=== PATIENT | male | born 1970 | race Caucasian/White ===

== ENCOUNTER 2019-12-26 21:06 | Inpatient (IN) ==
[2019-12-27] MEDS ORDERED: DOCUSATE SODIUM 100 MG CAPSULE PO PRN (00:09)
[2019-12-27] MEDS ORDERED: DEXTROSE 50% 25 GM/50 ML VIAL IV PRN (00:09)
[2019-12-27] MEDS ORDERED: GLUCAGON 1 MG VIAL IM PRN (00:09)
[2019-12-27] MEDS ORDERED: ONDANSETRON 4 MG/2 ML VIAL IV PRN (00:09)
[2019-12-27] MEDS ORDERED: NITROGLYCERIN SL 0.4 MG TABLET SL PRN (00:14)
[2019-12-27] MEDS ORDERED: LORazepam 2 MG/1 ML VIAL IV PRN (00:15)
[2019-12-27] MEDS ORDERED: MAGNESIUM SULF RIDER 2 GM in PREMIX 1 EACH IV PRN ×2 (00:20→08:47)
[2019-12-27] MEDS ORDERED: POTASSIUM CHLORIDE 20 MEQ TABLET PO ONE (00:20)
[2019-12-27] MEDS ORDERED: MAGNESIUM SULF RIDER 4 GM in PREMIX 1 EACH IV PRN (00:20)
[2019-12-27] MEDS: NICOTINE 21 MG/24 HR PATCH TRANSDERM PRN (00:41)
[2019-12-27] MEDS: LORazepam 2 MG/1 ML VIAL IV PRN (01:16)
[2019-12-27] MEDS: ACETAMINOPHEN 325 MG TABLET PO PRN ×2 (03:50→08:25)
[2019-12-27 06:26] LABS: Basophils % 0.3 % (0.0-0.8); Eosinophils # 0.2 10*3/uL (0.0-0.87); Eosinophils % 1.7 % (0.00-10.9); Hematocrit 44.1 VOL% (42.0-52.0); Hemoglobin 14.3 GM/DL (14.0-18.0); Immature Granulocytes % 0.3 %; Immature Granulocytes Absolute 0.03 #; Lymphocytes % 25.9 % (21.2-54.2); Mean Corpuscular HGB Conc 32.4 GM/DL (32-36); Mean Corpuscular Volume 94.4 FL (87-102); Mean Platelet Volume 10.2 FL (9.6-12.0); Monocytes % 4.8 % (1.7-12.7); Platelet Count 245 T/CUMM (130-400); Red Blood Count 4.67 MC/CUMM (3.8-5.5); Red Cell Distribution Width 14.6 % (9.3-17.3); White Blood Count 11.6 T/CUMM (4-12)
[2019-12-27 07:14] LABS: Albumin 3.4 G/DL (3.4-5.0); Bilirubin,Total 0.4 MG/DL (0.2-1.0); Calcium 8.7 MG/DL (8.5-10.1); Risk Ratio 5.76; Thyroid Stimulating Hormone 3.23 uIU/ml (0.358-3.74); Total Protein 7.9 G/DL (6.4-8.3); VLDL CHOLESTEROL 52.2 MG/DL
[2019-12-27] MEDS: INSULIN LISPRO 100 UNIT/ML SUBCUT SCH ×4 (08:20→22:18)
[2019-12-27] MEDS: hydrALAZINE 20 MG/1 ML VIAL IV PRN ×2 (08:22→15:58)
[2019-12-27] MEDS ORDERED: POTASSIUM CHLORIDE RIDER 10 MEQ in PREMIX 1 EACH IV PRN (08:47)
[2019-12-27] MEDS ORDERED: DIAZEPAM 5 MG TABLET PO ONE (08:47)
[2019-12-27] MEDS ORDERED: diphenhydrAMINE CAP 50 MG CAPSULE PO ONE (08:47)
[2019-12-27] MEDS ORDERED: ENOXAPARIN 120 MG/0.8 ML SYRINGE SUBCUT SCH (09:00)
[2019-12-27] MEDS: AMOXICILLIN 875 MG TABLET PO SCH ×2 (09:53→21:06)
[2019-12-27 10:11] LABS: Barbiturates Screen,Urine Negative (Negative); Benzodiazepines Screen,Urine Negative (Negative); Cannabinoid Screen,Urine Positive (Negative); Opiate Screen,Urine Negative (Negative); Phencyclidine Screen,Urine Negative (Negative)
[2019-12-27] MEDS: POTASSIUM CHLORIDE 20 MEQ TABLET PO PRN ×3 (10:13→17:05)
[2019-12-27] MEDS: ASPIRIN EC 81 MG TABLET PO SCH (10:13)
[2019-12-27] MEDS ORDERED: LIDOCAINE 1% 20 ML VIAL ONE (10:35)
[2019-12-27] MEDS ORDERED: HEPARIN/NACL 0.9% 2 UNITS/ML 1,500 ML IV ONE (10:35)
[2019-12-27] MEDS ORDERED: fentaNYL 100 MCG/2 ML VIAL ONE ×2 (11:24→13:00)
[2019-12-27] MEDS ORDERED: MIDAZOLAM 2 MG/2 ML VIAL ONE (11:24)
[2019-12-27] MEDS ORDERED: CLOPIDOGREL 300 MG TABLET ONE (12:01)
[2019-12-27] MEDS ORDERED: NITROGLYCERIN DRIP 50 MG/250 ML BOTTLE IV ONE (12:02)
[2019-12-27] MEDS: FOLIC ACID 1 MG TABLET PO SCH ×2 (13:59→21:05)
[2019-12-27] MEDS: ASCORBIC ACID 500 MG TABLET PO SCH ×2 (13:59→21:06)
[2019-12-27] MEDS: carvediloL 6.25 MG TABLET PO SCH ×2 (13:59→21:05)
[2019-12-27] MEDS: MORPHINE 4 MG/1 ML VIAL IV PRN ×2 (13:59→21:42)
[2019-12-27] MEDS ORDERED: MAGNESIUM HYDROXIDE SUSP 30 ML UDCUP PO PRN (16:22)
[2019-12-27] MEDS ORDERED: ALUMINUM/MAGNES/SIMETH MAX STR 30 ML UDCUP PO PRN (16:23)
[2019-12-27] MEDS ORDERED: ALUMINUM/MAGNES/SIMETH MAX STR 30 ML UDCUP PO ONE (16:24)
[2019-12-27] MEDS: THIAMINE INJ 100 MG, FOLIC ACID INJ 1 MG, MULTIVITAMIN INJ 10 ML in SODIUM CHLORIDE 0.9... IV SCH (17:06)
[2019-12-27] MEDS: ATORVASTATIN 40 MG TABLET PO SCH (21:05)
[2019-12-28] MEDS: NICOTINE 21 MG/24 HR PATCH TRANSDERM PRN (03:06)
[2019-12-28 06:44] LABS: Basophils % 0.4 % (0.0-0.8); Eosinophils # 0.2 10*3/uL (0.0-0.87); Eosinophils % 2.1 % (0.00-10.9); Hematocrit 46.2 VOL% (42.0-52.0); Hemoglobin 14.8 GM/DL (14.0-18.0); Immature Granulocytes % 0.4 %; Immature Granulocytes Absolute 0.04 #; Lymphocytes % 31.3 % (21.2-54.2); Mean Corpuscular Volume 97.3 FL (87-102); Mean Platelet Volume 9.9 FL (9.6-12.0); Monocytes % 5.3 % (1.7-12.7); Neutrophils % 60.5 % (38.7-73.9); Platelet Count 243 T/CUMM (130-400); Red Blood Count 4.75 MC/CUMM (3.8-5.5); Red Cell Distribution Width 14.8 % (9.3-17.3); White Blood Count 9.6 T/CUMM (4-12)
[2019-12-28 07:10] LABS: Calcium 8.7 MG/DL (8.5-10.1)
[2019-12-28] MEDS: ASCORBIC ACID 500 MG TABLET PO SCH ×2 (09:07→21:01)
[2019-12-28] MEDS: ASPIRIN EC 81 MG TABLET PO SCH (09:07)
[2019-12-28] MEDS: AMOXICILLIN 875 MG TABLET PO SCH ×2 (09:07→21:01)
[2019-12-28] MEDS: carvediloL 6.25 MG TABLET PO SCH ×2 (09:07→21:01)
[2019-12-28] MEDS: CLOPIDOGREL 75 MG TABLET PO SCH (09:07)
[2019-12-28] MEDS: FOLIC ACID 1 MG TABLET PO SCH ×2 (09:07→21:01)
[2019-12-28] MEDS: INSULIN LISPRO 100 UNIT/ML SUBCUT SCH ×4 (09:08→21:01)
[2019-12-28] MEDS: hydrALAZINE 20 MG/1 ML VIAL IV PRN (09:08)
[2019-12-28] MEDS ORDERED: amLODIPine 10 MG TABLET PO SCH (10:00)
[2019-12-28] MEDS: LORazepam 2 MG/1 ML VIAL IV PRN (15:37)
[2019-12-28] MEDS: THIAMINE INJ 100 MG, FOLIC ACID INJ 1 MG, MULTIVITAMIN INJ 10 ML in SODIUM CHLORIDE 0.9... IV SCH (16:02)
[2019-12-28] MEDS: ATORVASTATIN 40 MG TABLET PO SCH (21:01)
[2019-12-28] MEDS: ACETAMINOPHEN 325 MG TABLET PO PRN (21:07)
[2019-12-29 06:29] LABS: Osmolality,Calculated 274.8 MOS/KG (273-304)
[2019-12-29 07:49] VITALS: BP 163/101
[2019-12-29] MEDS ORDERED: amLODIPine 10 MG TABLET PO SCH (09:00)
[2019-12-29] MEDS: FOLIC ACID 1 MG TABLET PO SCH (09:25)
[2019-12-29] MEDS: ASPIRIN EC 81 MG TABLET PO SCH (09:25)
[2019-12-29] MEDS: ASCORBIC ACID 500 MG TABLET PO SCH (09:25)
[2019-12-29] MEDS: INSULIN LISPRO 100 UNIT/ML SUBCUT SCH (09:25)
[2019-12-29] MEDS: POTASSIUM CHLORIDE 20 MEQ TABLET PO PRN ×2 (09:26→10:18)
[2019-12-29] MEDS: AMOXICILLIN 875 MG TABLET PO SCH (09:26)
[2019-12-29] MEDS: carvediloL 6.25 MG TABLET PO SCH (09:26)
[2019-12-29] MEDS: CLOPIDOGREL 75 MG TABLET PO SCH (09:26)
== END 2019-12-29 10:56 | disposition home or self-care (01) | DRG 247 ==
LOC: N.TELEN 22:40 → OBSVTOIN 22:40 → SUATTDRO 22:40 → INTOOBSV 22:40
PROVIDERS: ADMIT Internal Medicine; ATTEND Internal Medicine
PROC: CLCCHCL (ICD-10-PCS; 2019-12-27 10:45)